=== PATIENT | male | born 1950 | race Caucasian/White ===

== ENCOUNTER 2020-03-22 08:19 | Outpatient (REF) | payer OTHER, SELFPAY ==
[2020-03-22 21:13] LABS: HGB 14.7 g/dL (13.5-17.5); MCH 29.8 pg (27.0-33.0); MCHC 33.4 % (32.0-36.0); MCV 89.2 fL (80-95); Platelet Count 159 10^3/uL (130-400); RBC 4.93 10^6/uL (4.36-5.78); RDW 13.2 % (11.8-14.1); RDW-SD 43.6 fL; WBC 5.27 10^3/uL (4.4-10.8)
[2020-03-22 21:56] LABS: ALT 26 U/L (16-63); AST 16 U/L (15-37); Alkaline Phosphatase 42 U/L (46-116); Anion Gap 9.3 mmol/L (3-11); BUN 18 mg/dL (7-18); Bilirubin, Total 0.7 mg/dL (0.2-1.0); CO2 28.7 mmol/L (21.0-32.0); CREATININE 1.05 mg/dL (0.70-1.30); Calculated LDL 96 mg/dL (<100); Chloride 106 mmol/L (98-107); Cholesterol 156 mg/dL (<200); Glucose 99 mg/dL (74-106); HDL Cholesterol 46 mg/dL (40-60); Potassium 4.1 mmol/L (3.5-5.1); Sodium 144 mmol/L (136-145); Total Protein 6.9 g/dL (6.4-8.2); Triglyceride 73 mg/dL (<150)
[2020-03-23 18:16] LABS: PSA, Screening 1.2 ng/mL (0.0-4.5)
== END 2020-03-22 08:39 ==
LOC: NCHCN 08:19
PROVIDERS: PCP Family Medicine; Visit Provider Family Medicine
DX: Z00.00 Encounter for general adult medical examination without abnormal findings (principal); Z13.228 Encounter for screening for other metabolic disorders; Z13.220 Encounter for screening for lipoid disorders; Z12.5 Encounter for screening for malignant neoplasm of prostate
CPT/HCPCS: 80053; 80061; 84153; 85027

== ENCOUNTER 2020-03-29 12:39 | Outpatient (REF) | payer OTHER, SELFPAY ==
[2020-03-31 22:44] LABS: Anaplasma phagocytophilum Negative (Negative); B. miyamotoi PCR Negative (Negative); Babesia divergens/MO-1 Negative (Negative); Babesia duncani Negative (Negative); Babesia microti Negative (Negative); Ehrlichia chaffeensis Negative (Negative); Ehrlichia ewingii/canis Negative (Negative); Ehrlichia muris eauclairensis Negative (Negative)
== END 2020-03-29 12:59 ==
LOC: NCHCN 12:39
PROVIDERS: PCP Family Medicine; Visit Provider Family Medicine
DX: W57.XXXA Bitten or stung by nonvenomous insect and other nonvenomous arthropods, initial encounter (principal); T14.8XXA Other injury of unspecified body region, initial encounter
CPT/HCPCS: 87798

== ENCOUNTER 2020-11-17 06:09 | Day surgery (SDC) | payer OTHER, SELFPAY ==
[2020-11-17 06:21] VITALS: BP 127/71; PULSE 58; RESP 16; TEMP 36.4; O2SAT 98
[2020-11-17] MEDS: Lactated Ringers 1,000 ML 80 ML IV (06:58)
[2020-11-17] MEDS: ceFAZolin 2 GM/50 ML BAG IVPB (07:30)
[2020-11-17] MEDS: Bupivacaine 0.5% Pres-Free 30 ML VIAL (08:00)
[2020-11-17] MEDS: Dexamethasone 4 MG/ML VIAL (08:00)
--- NOTE | 2020-11-17 08:11 | W.PM.DSUDISC ---
Discharge Plan Disposition Patient Disposition: HOME Condition: Good Discharge Details Reason For Visit: Arthroplasty left third toe Attending Provider: Kael Coleman Primary Care Provider: Krystin Sharma Home Meds and New Rx's Prescriptions: New oxycodone-acetaminophen 5-325 mg tablet 1 tab PO Q6H PRN (Reason: pain) Qty: 7 RF: 0 Continued acetaminophen [Tylenol Arthritis Pain] 650 mg Tablet Extended Release 1,300 mg PO BID RF: 0 [id number] serr [Glucosamine Daily Complex] 1,500-400-100 mg-unit-mg Tablet 1 tab PO TID RF: 0 Discharge Instructions Activity:: Elevate Remove Dressings/Wound Care:: Do Not Remove Shower/Bathe:: Cover Diet:: Normal Diet Discharge Orders Discharge Orders: Discharge Order (Routine); Ordered 11/17/20 Ordered By: Kael Coleman DS: Diagnosis Discharge Diagnosis (1) Hammertoe of left foot: Status: Acute (2) Mucoid cyst of joint: Status: Acute
--- NOTE | 2020-11-17 08:15 | W.PM.OP ---
Date of service: 11/17/20 Time of Service: 08:15 Operative Note Operative Note Álvaro was brought to the operative suite placed in the supine position with the left foot was prepped and draped in the usual sterile podiatric fashion once the left third toe was anesthetized with 8 cc of a 50: 50 mixture 1% lidocaine with epinephrine 1 100,000 and 0.5% Marcaine plain. Timeout was performed for safety surgery. Attention was directed to the left third toe where a large mucoid cyst is appreciated at the DIPJ. 2 converging horizontally placed incisions were placed so as to encompass the mucoid cyst over the distal interphalangeal joint. The incisions were performed with a #15 scalpel controlled depth fashion. The skin wedge and cap of the cyst was removed. Clear gelatinous material was appreciated. Dissection was carried down to the distal interphalangeal joint level where a transverse tenotomy capsulotomy was performed. Degenerative changes along the dorsal aspect of the head of the middle phalanx was appreciated most likely the source of weakness inciting the mucoid cyst. With a round sure the head of the middle phalanx was roughened up removing all bony spurs and irregularity. Copious irrigation was performed. Stabilization was performed with a 0.062 K wire in retrograde fashion. The joint capsule was repaired with a simple interrupted suture 4-0 Vicryl and the skin was coapted with simple interrupted suture of 4-0 nylon. 4 mg dexamethasone phosphate was infused proximally deeply into the toe. Betadine ointment applied to the K wire Xeroform applied to the incision gauze fluff compression dressings applied. Álvaro left the OR with sharp and sponge counts correct, vital signs stable, vascular status intact. He will be followed by myself in the office next week. Dictated with Telly naturally speaking not reviewed for accuracy.
== END 2020-11-17 08:58 | disposition home or self-care (01) ==
PROVIDERS: PCP Family Medicine; Visit Provider Podiatrist
PROC: (CPT 28285; principal; 2020-11-17 07:30)
DX: M20.42 Other hammer toe(s) (acquired), left foot (principal); M25.872 Other specified joint disorders, left ankle and foot
CPT/HCPCS: 28285; 28092; J0690; J1100

== ENCOUNTER 2021-01-01 20:04 | Outpatient (REF) | payer OTHER, SELFPAY | END 2021-01-01 20:05 | disposition home or self-care (01) | LOC: LBN 20:04 | PROVIDERS: PCP Family Medicine; Visit Provider Podiatrist | DX: L02.612 Cutaneous abscess of left foot (principal) | CPT/HCPCS: 87077; 87070; 87186; 87205 ==

== ENCOUNTER 2021-08-31 08:54 | Outpatient (REF) | payer OTHER, SELFPAY ==
[2021-08-31 14:13] LABS: HGB 14.5 g/dL (13.5-17.5); MCH 29.8 pg (27.0-33.0); MCHC 33.7 % (32.0-36.0); MCV 88.3 fL (80-95); MPV 9.7 fL (8.0-11.0); Platelet Count 156 10^3/uL (130-400); RBC 4.87 10^6/uL (4.36-5.78); RDW 13.2 % (11.8-14.1); RDW-SD 42.9 fL; WBC 5.01 10^3/uL (4.4-10.8)
[2021-08-31 14:26] LABS: ALT 28 U/L (16-63); AST 11 U/L (15-37); Alkaline Phosphatase 45 U/L (46-116); BUN 20 mg/dL (7-18); Bilirubin, Total 0.7 mg/dL (0.2-1.0); CREATININE 1.2 mg/dL (0.70-1.30); Calculated LDL 98 mg/dL (<100); Chloride 103 mmol/L (98-107); Cholesterol 158 mg/dL (<200); Glucose 94 mg/dL (74-106); HDL Cholesterol 48 mg/dL (40-60); Potassium 4.1 mmol/L (3.5-5.1); Sodium 141 mmol/L (136-145); Total Protein 7.1 g/dL (6.4-8.2); Triglyceride 62 mg/dL (<150)
[2021-08-31 21:59] LABS: PSA, Screening 1.3 ng/mL (0.0-4.5)
== END 2021-08-31 08:55 | disposition home or self-care (01) ==
LOC: NCHCN 08:54
PROVIDERS: PCP Family Medicine; Visit Provider Family Medicine
DX: Z00.00 Encounter for general adult medical examination without abnormal findings (principal); Z12.5 Encounter for screening for malignant neoplasm of prostate; Z13.220 Encounter for screening for lipoid disorders; Z13.228 Encounter for screening for other metabolic disorders
CPT/HCPCS: 80053; 80061; 84153; 85027

== ENCOUNTER → 2022-02-22 15:33 | Outpatient (CLI) | payer OTHER, SELFPAY ==
--- NOTE | 2022-02-22 | DI.RAD_ITS ---
Exam(s) XR CLAVICLE RT EXAM: XR CLAVICLE RT CLINICAL HISTORY: EFFUSION STERNOCLAVICULAR JOINT M25.419. TECHNIQUE: 2D digital imaging was performed. COMPARISON: No exams were available for comparison FINDINGS: Two views No evidence of acute fracture nor dislocation. However, there are significant degenerative changes i n the acromioclavicular joint evident. No osseous lesions. IMPRESSION: Degenerative AC joint changes. DATA REPOSITORY: RADIATION DOSE DELIVERED:
== END ==
PROVIDERS: PCP Family Medicine; Visit Provider Family Medicine
DX: M19.011 Primary osteoarthritis, right shoulder (principal)
CPT/HCPCS: 73000

== ENCOUNTER 2022-12-18 10:16 | Outpatient (REF) | payer MEDICARE, SELFPAY ==
[2022-12-18 15:03] LABS: ALT 27 U/L (16-63); AST 10 U/L (15-37); Albumin 3.9 g/dL (3.4-5.0); Alkaline Phosphatase 58 U/L (46-116); Anion Gap 7.5 mmol/L (3-11); BUN 18 mg/dL (7-18); Bilirubin, Total 0.5 mg/dL (0.2-1.0); CO2 29.5 mmol/L (21.0-32.0); CREATININE 1.1 mg/dL (0.70-1.30); Calcium 9.1 mg/dL (8.5-10.1); Calculated LDL 97 mg/dL (<100); Chloride 104 mmol/L (98-107); Cholesterol 156 mg/dL (<200); Estimated GFR 72.22 (mL/min/1.73m2); Glucose 97 mg/dL (74-106); HDL Cholesterol 45 mg/dL (40-60); Potassium 4.2 mmol/L (3.5-5.1); Sodium 141 mmol/L (136-145); Total Protein 7.3 g/dL (6.4-8.2); Triglyceride 70 mg/dL (<150)
[2022-12-19 10:55] LABS: PSA, Screening 1.3 ng/mL (<=6.5)
== END 2022-12-18 10:17 | disposition home or self-care (01) ==
LOC: NCHCN 10:16
PROVIDERS: PCP Family Medicine; Visit Provider Family Medicine
DX: Z00.00 Encounter for general adult medical examination without abnormal findings (principal); F10.11 Alcohol abuse, in remission
CPT/HCPCS: 80053; 80061; 84153

== ENCOUNTER 2023-12-30 09:11 | Outpatient (REF) | payer MEDICARE, SELFPAY ==
[2023-12-30 15:25] LABS: ALT 27 U/L (16-63); AST 12 U/L (15-37); Albumin 4.2 g/dL (3.4-5.0); Alkaline Phosphatase 45 U/L (46-116); Anion Gap 7.6 mmol/L (3-11); BUN 25 mg/dL (7-18); Bilirubin, Total 0.5 mg/dL (0.2-1.0); CO2 29.4 mmol/L (21.0-32.0); CREATININE 1.3 mg/dL (0.70-1.30); Calcium 9.5 mg/dL (8.5-10.1); Calculated LDL 98 mg/dL (<100); Chloride 106 mmol/L (98-107); Cholesterol 158 mg/dL (<200); Estimated GFR 58.73 (mL/min/1.73m2); Glucose 104 mg/dL (74-106); HDL Cholesterol 49 mg/dL (40-60); Potassium 5.2 mmol/L (3.5-5.1); Sodium 143 mmol/L (136-145); Total Protein 7.2 g/dL (6.4-8.2); Triglyceride 57 mg/dL (<150)
[2023-12-31 14:04] LABS: PSA, Screening 1.4 ng/mL (<=6.5)
== END 2023-12-30 09:12 | disposition home or self-care (01) ==
LOC: NCHCN 09:11
PROVIDERS: PCP Family Medicine; Visit Provider Family Medicine
DX: I10 Essential (primary) hypertension (principal); Z00.00 Encounter for general adult medical examination without abnormal findings
CPT/HCPCS: 80053; 80061; 84153

== ENCOUNTER 2025-01-05 08:45 | Outpatient (REF) | payer MEDICARE, SELFPAY ==
[2025-01-05 18:43] LABS: ALT 21 U/L (16-63); AST 14 U/L (15-37); Albumin 3.8 g/dL (3.4-5.0); Alkaline Phosphatase 64 U/L (46-116); BUN 25 mg/dL (7-18); Bilirubin, Total 0.5 mg/dL (0.2-1.0); CREATININE 1.1 mg/dL (0.70-1.30); Calcium 9.3 mg/dL (8.5-10.1); Calculated LDL 92 mg/dL (<100); Chloride 104 mmol/L (98-107); Cholesterol 160 mg/dL (<200); Estimated GFR 71.32 (mL/min/1.73m2); Glucose 94 mg/dL (74-106); HDL Cholesterol 47 mg/dL (>or=40); Potassium 4.4 mmol/L (3.5-5.1); Sodium 139 mmol/L (136-145); Total Protein 7.2 g/dL (6.4-8.2); Triglyceride 107 mg/dL (<150)
[2025-01-05 19:36] LABS: Hemoglobin A1C 5.7 % (<5.7)
== END 2025-01-05 08:46 | disposition home or self-care (01) ==
LOC: NCHCN 08:45
PROVIDERS: PCP Family Medicine; Visit Provider Family Medicine
DX: I10 Essential (primary) hypertension (principal); R73.03 Prediabetes
CPT/HCPCS: 80053; 80061; 83036